=== PATIENT | female | born 1990 | race Caucasian/White ===

== ENCOUNTER 2018-01-22 18:24 | Emergency (ER) | payer OTHER ==
[2018-01-22 18:55] VITALS: BP 125/81; PULSE 85; RESP 15; TEMP 99.7; O2SAT 96
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
== END 2018-01-22 20:12 | disposition home or self-care (01) ==
LOC: C.ER 18:24
DX: S29.012A Strain of muscle and tendon of back wall of thorax, initial encounter (principal); V09.9XXA Pedestrian injured in unspecified transport accident, initial encounter